=== PATIENT | female | born 1990 | race Two or more races ===

== ENCOUNTER 2022-08-04 12:45 | Emergency (ER) | payer SELFPAY ==
[~2022-08-04] VITALS: Ht 167.6 cm; Wt 65.8 kg
--- NOTE | 2022-08-04 13:00 | NUR ---
BIBS C/O VAGINAL BLEEDING, BRIGHT RED X2 HOURS STATED THAT HE RESEMBLE HER PERIOD AND STARTED CRAMPING ON ONSET. A0, LAST MENSTRUAL PERIOD 07/09. VITALS ARE WITHIN NORMAL LIMITS. AWAITING MD RODAS.
--- NOTE | 2022-08-04 13:05 | NUR ---
URINE COLLECTED AND SENT TO LAB
[2022-08-04] MEDS ORDERED: ACETAMINOPHEN ES 500 MG TABLET PO ONE (13:30)
[2022-08-04] MEDS ORDERED: ACETAMINOPHEN ES 500 MG TABLET ONE (13:36)
--- NOTE | 2022-08-04 13:54 | NUR ---
DR BARLOW AT BEDSIDE FOR ULTRASOUND
[2022-08-04 13:57] LABS: BILIRUBIN,URINE NEGATIVE (NEGATIVE); COLOR,URINE YELLOW (YELLOW); LEUKOCYTE ESTERASE ,URINE NEGATIVE (NEGATIVE); NITRITE, URINE NEGATIVE (NEGATIVE); PROTEIN,URINE NEGATIVE (NEGATIVE); UGLUCOSE NEGATIVE (NEGATIVE); UROBILINOGEN,URINE 0.2 EU/dL (0.2)
[2022-08-04 14:03] LABS: BASOPHILS % (AUTO) 0.3 % (0.0-2.0); EOSINOPHILS % (AUTO) 1.2 % (0.0-6.0); HEMATOCRIT 44 % (33-45); HEMOGLOBIN 13.9 g/dL (11.5-14.8); LYMPHOCYTES # (AUTO) 2.1 K/uL (0.8-4.8); LYMPHOCYTES % (AUTO) 23.9 % (20.0-44.0); MEAN CORPUSCULAR HGB CONC 32 g/dl (31.0-36.0); MEAN CORPUSCULAR VOLUME 82 fL (82-100); MONOCYTES # (AUTO) 0.4 K/uL (0.1-1.30); MONOCYTES % (AUTO) 4.3 % (2.0-12.0); NEUTROPHILS % (AUTO) 70.3 % (43.0-81.0); PLATELET COUNT (AUTO) 285 K/uL (150-450); RED BLOOD CELL COUNT(AUTO) 5.32 MIL/uL (4.0-5.2); WHITE BLOOD COUNT (AUTO) 8.6 K/uL (4.3-11.0)
[2022-08-04 14:16] LABS: CALCIUM, SERUM 8.9 mg/dL (8.5-10.1); CREATININE 0.8 mg/dL (0.6-1.3); POTASSIUM 3.9 mmol/L (3.5-5.1)
[2022-08-04 14:36] LABS: ALBUMIN 4.2 g/dL (3.4-5.0); BILIRUBIN,DIRECT 0.1 mg/dL (0.0-0.2); BILIRUBIN,TOTAL 0.4 mg/dL (0.2-1.0); TOTAL PROTEIN, SERUM 7.9 g/dL (6.4-8.2)
[2022-08-04 15:44] LABS: BACTERIA,URINE None seen /HPF (None Seen); MUCUS,URINE Few /LPF (None Seen); RBC,URINE 81-100 /HPF (0-2); SQUAMOUS EPITHELIAL CELL,UR 0-2 /HPF (None Seen); WBC,URINE 0-2 /HPF (0-3)
--- NOTE | 2022-08-04 16:35 | NUR ---
Patient discharged to home in stable condition. Written and verbal after care instructions given. Patient verbalizes understanding of instruction.
[2022-08-04 16:36] VITALS: BP 119/81
== END 2022-08-04 16:36 | disposition home or self-care (01) ==
LOC: ER 12:48
DX: O20.0 Threatened abortion (principal)
CPT/HCPCS: 36415; 76805-TC; 80048-TC; 80076-TC; 81001; 84702-TC; 85025-TC; 86850-TC

== ENCOUNTER 2022-08-10 10:19 | Emergency (ER) | payer SELFPAY ==
[~2022-08-10] VITALS: Ht 172.7 cm; Wt 65.8 kg
[2022-08-10 11:21] VITALS: BP 129/81
--- NOTE | 2022-08-10 12:38 | NUR ---
TO ER CHAIR 1, NO APPARENT CHANGE IN CONDITION
[2022-08-10] MEDS ORDERED: NAPR-1192 PO (13:48)
--- NOTE | 2022-08-10 14:21 | NUR ---
Patient discharged to home in stable condition. Written and verbal after care instructions given. Patient verbalizes understanding of instruction.
--- NOTE | 2022-08-10 14:21 | NUR ---
mane wrap applied to the affected extremity, as recommended by the ER physician KUMAR Sawant applied the Mane wrap as ordered
--- NOTE | 2022-08-10 14:22 | NUR ---
Patient discharged to home in stable condition. Written and verbal after care instructions given. Patient verbalizes understanding of instruction.
== END 2022-08-10 14:22 | disposition home or self-care (01) ==
LOC: ER 10:21
DX: S96.912A Strain of unspecified muscle and tendon at ankle and foot level, left foot, initial encounter (principal); Z79.1 Long term (current) use of non-steroidal anti-inflammatories (NSAID); X58.XXXA Exposure to other specified factors, initial encounter; Y93.89 Activity, other specified; Y92.89 Other specified places as the place of occurrence of the external cause; Y99.8 Other external cause status
CPT/HCPCS: 73630-TC